=== PATIENT | female | born 1995 | race Hispanic/Latino ===

== ENCOUNTER 2017-07-08 20:43 | Emergency (ER) | payer SELFPAY ==
[2017-07-08 21:01] VITALS: BP 122/81
--- NOTE | 2017-07-08 22:42 | Emergency Department Report ---
ED Head Injury/Laceration HPI - HPI Occurred When: Today Mechanism: Direct Blow Location: Facial (left periorbit cut and bruises and), Frontal Pain: Moderate (6/10) Tetanus Status: Not up to Date Symptoms: Loss of Consciousness: No, Nausea: No, Blurred Vision: No, Unusual Behavior: No, Headache: Yes, Swelling: Yes, Bruising: Yes, Break in Skin: Yes, Bleeding: Yes Other History: Patient reported that she was at the playground today and misjudged speed and hit head on pipe which is metal. She says she has a cut over left eye with swelling. Denies any loss in vision or pain in her eye. Denies any nausea or vomiting. Denies any loss of consciousness. Denies any neck or back pain. She is complaining of pain localized to left facial area around her eye and also headache. Pain is 6 out of 10 and achy. Worse with touch period. No medication taken prior to coming to the hospital. Tetanus vaccine is not up-to-date. She denied any alcohol or drug involvement. ED General PMH - Past Medical History General Medical History: no medical history Surgical History: no surgical history LMP (females 10-50): last week (07/01/2017) - Family History Significant Family History: no pertinent family hx - Social History Smoking Status: Former Smoker Alcohol Use: none Drug Use: N ED Review of Systems ROS: Stated complaint: LACERATION L EYE Other details as noted in HPI Comment: All other systems reviewed and negative Constitutional: no symptoms reported Eyes: other (left eye swelling and). denies: eye pain, eye discharge, vision change ENT: denies: ear pain, throat pain, dental pain, hearing loss, epistaxis, congestion Respiratory: no symptoms reported Cardiovascular: denies: chest pain, palpitations, dyspnea on exertion, orthopnea , edema, syncope, paroxysmal nocturnal dyspnea Gastrointestinal: denies: abdominal pain, nausea, vomiting, diarrhea, constipation Genitourinary: denies: dysuria Musculoskeletal: arthralgia (left facial area). denies: back pain, joint swelling, myalgia Skin: other (swelling around left eye, bruising and laceration) Neurological: headache. denies: weakness, numbness, paresthesias, confusion, abnormal gait, vertigo Head Inj w/lac Physical Exam - Exam General: Vital signs noted. No distress. Alert and acting appropriately. This is a 22-year-old female well-nourished well-developed in no acute distress. Vital Signs 07/08/17 07/08/17 20:54 21:25 Temperature 98.7 F 98.7 F Pulse Rate 84 84 Respiratory 14 14 Rate Blood Pressure 122/81 122/81 O2 Sat by Pulse 99 99 Oximetry Adult Head Front + Back: 1 - 0.5 cm superficial laceration to left periorbital area. Bleeding noted. Tender to palpate with contusion around periorbital area 2 - Left periorbital contusion and bruising, swelling. Tender to palpate Head: Yes PERRL (sclera and conjunctiva within normal limits. No nystagmus), Yes Hematoma/Ecchymosis (left periorbital with tenderness to palpate), No Hemotympanum, No Epistaxis, No Stepoff/Deformity, No Abrasion (laceration to left periorbital area), No Foreign Body (visual acuity 20/40 left eye, 20/15 right eye. Patient does not wear glasses. Funduscopic exam is normal) Wound Length (cm): 0 (0.5 cm linear) Laceration Location: Facial (periorbital) Chest, Abd, & Ext: Yes Clear Lung Sounds (CTAB), Yes Regular Heart Rhythm (S1S2) , No Neck Pain, No Chest Injury/Pain, No Heart Murmur, No Abdominal Tenderness ( NTTP in all quadrants), No Back Tenderness (no vertebral or paraspinal tendernes ), No Extremity Injury (no CCE. +2 pulses) Neuroligical (Head Inj W/O Lac: Yes Normal Speech, Yes Normal Gait (positive Romberg and positive pronator drift), No Lethargy, No Disorientation (alert and oriented 3. GCS of 15 and speech is clear and fluid. No facial droop ), No Focal Weakness - Laceration /Wound Repair Left Face Wound Location: face (left periorbital) Wound Length (cm): 0 Wound's Depth, Shape: superficial (here 0.5 cm), linear Wound Explored: no foreign body removed Irrigated w/ Saline (ccs): 400 Betadine Prep?: Yes Anesthesia: 0.5% Sensorcaine (Marcaine) Volume Anesthetic (ccs): 2 Wound Debrided: moderate Wound Repaired With: sutures Suture Size/Type: 4:0 (Ethilon) Number of Sutures: 6 Layer Closure?: No Sterile Dressing Applied?: Yes (tolerated procedure well) ED Disposition Clinical Impression: Laceration of face Qualifiers: Encounter type: initial encounter Qualified Code(s): S01.81XA - Laceration without foreign body of other part of head, initial encounter Contusion of periorbital region, left Qualifiers: Encounter type: initial encounter Qualified Code(s): S05.12XA - Contusion of eyeball and orbital tissues, left eye, initial encounter Headache Qualifiers: Headache type: post-traumatic Headache chronicity pattern: acute headache Intractability: not intractable Qualified Code(s): G44.319 - Acute post- traumatic headache, not intractable Head injury, closed, without LOC Qualifiers: Encounter type: initial encounter Qualified Code(s): S09.90XA - Unspecified injury of head, initial encounter Disposition: DC- TO HOME OR SELFCARE Is pt being admited?: No Does the pt Need Aspirin: No Condition: Stable Instructions: Suture Care (ED), Laceration (ED), Black Eye (ED), Minor Head Injury (ED), Acute Headache (ED), Contusion in Adults (ED) Additional Instructions: Please follow discharge instructions on closed head injury. You need to follow- up with primary care 24 hours after head injury for follow-up neurological exam. He can return to the emergency room or go to urgent care if he do not have a primary care physician. If he did not have a primary care physician ,you can also follow-up at [facility] Take antibiotic as prescribed Take Tylenol for pain Please return to emergency room or urgent care in 5 days to have sutures removed. Keep Affected area to face clean and dry. It is possibileyou may have a scar and you can follow-up with plastic facial. Refer to discharge and shortened paperwork for details If you develop, increased sleepiness, dizziness, nausea vomiting, visual difficulties, increase in headache or any change in her mental status to include speech please return to the emergency room MASTER Prescriptions: Acetaminophen [Tylenol] 500 mg PO Q6HR PRN #16 tablet PRN Reason: pain Cephalexin [Keflex] 500 mg PO Q8HR 7 Days #21 cap Referrals: KYE ABDI MD [Primary Care Provider] - 07/10/17 [facility] [Outside] - 07/10/17 return to, emergency room [Other] - 07/10/17 (For 24 hour neurological checks status post closed head injury if he cannot get in with primary care or urgent care.) Forms: Accompanied Note, Work/School Release Form(ED) - General Chief Complaint: Laceration/Recheck/Suture Stated Complaint: LACERATION L EYE Time Seen by Provider: 07/08/17 22:31 - History of Present Illness Allergies/Adverse Reactions: Allergies No Known Allergies Allergy (Unverified 07/08/17 22:43) Home Medications: Ambulatory Orders Acetaminophen [Tylenol] 500 mg PO Q6HR PRN #16 tablet 07/09/17 Cephalexin [Keflex] 500 mg PO Q8HR 7 Days #21 cap 07/09/17 ED Medical Decision Making - Radiology Data Radiology results: report reviewed CT scan of the head without contrast shows no acute intracranial abnormality CT scan of the facial bones without contrast shows no acute fracture but soft tissue swelling left periorbital - Medical Decision Making ED course: Pt here after injury and sustain laceration to left facial area. She ran into a metal pole. Neurological exam is normal except she has positive Romberg and positive pronator drift. Patient has no tenderness to palpate in neck. Tenderness to palpate facial bone left proximal. CT scan of the brain without contrast showed no acute intracranial processes. CT scan of facial bones show no fracture or dislocation patient with soft tissue swelling in the left periorbital area. Physical findings for laceration left periorbit, bruising periorbital area on the left. Laceration repaired and patient tolerated procedure well. Please refer to procedure section for detail and laceration. Patient with closed head injury and was educated that she has to follow up 24 hours after incident for repeat neurological checks. I discussed all her radiology report with her and family members and she voiced understanding. Patient was given Boostrix 0.5 mL to update tetanus, clindamycin 600 mg by mouth in the emergency room prophylaxis, Tylenol manage and 975 mg for headache. Patient had voiced relief of pain up and reevaluation. Patient discharged home with her family member to return to emergency room or urgent care to have sutures removed in 5 days. I also discussed signs of infection. I encouraged her to read discharge instruction on closed head injury and if she developed any symptoms to return to the emergency room MASTER. Patient discharged home with her family and voices understanding to discharge instruction and treatment plan and need to follow- up. She was discharged home on Tylenol plain and Keflex. ED Course Vital Signs 07/08/17 07/08/17 20:54 21:25 Temperature 98.7 F 98.7 F Pulse Rate 84 84 Respiratory 14 14 Rate Blood Pressure 122/81 122/81 O2 Sat by Pulse 99 99 Oximetry - Reevaluation(s) Reevaluation #1: 07/08/17 23:10 Patient received Tylenol 975 mg for headache, clindamycin 600 mg by mouth, Boostrix 0.[address] scan. Reevaluation #2: 07/09/17 00:45 CT scan of the facial bones reveal left periorbital swelling without any fracture. Ct scan of the head revealed no acute abnormalities.
[2017-07-08] MEDS ORDERED: NACL 0.9% IR ONE (22:45)
[2017-07-08] MEDS ORDERED: MARCAINE 0.5% INFILTRATI ONE (22:45)
[2017-07-08] MEDS ORDERED: CLEOCIN PO ONE (22:45)
[2017-07-08] MEDS ORDERED: BOOSTRIX IM ONE (22:45)
[2017-07-08] MEDS ORDERED: TYLENOL PO ONE (22:47)
[2017-07-08] MEDS ORDERED: PEPCID PO ONE (23:30)
[2017-07-08] MEDS ORDERED: PEPCID ONE (23:32)
[2017-07-09 00:05] LABS: HCG Qualitative,Urine Negative (Negative)
--- NOTE | 2017-07-09 00:35 | Cat Scan Report ---
FINAL REPORT PROCEDURE: CT HEAD/BRAIN WO CON TECHNIQUE: Computerized tomography of the head was performed without contrast material. HISTORY: head injury with headache COMPARISON: No prior studies are available for comparison. FINDINGS: Skull and scalp: Normal. Paranasal sinuses: Normal. Ventricles and subarachnoid spaces: Normal. Cerebrum: No evidence of hemorrhage, acute infarction or mass . Cerebellum and brainstem: No evidence of hemorrhage, acute infarction or mass. Vasculature: Normal. Comments: None. IMPRESSION: Normal Examination
--- NOTE | 2017-07-09 00:43 | Cat Scan Report ---
FINAL REPORT PROCEDURE: CT FACIAL BONES WO CON TECHNIQUE: Computerized tomography of the facial bones and soft tissues with axial and coronal sections performed from the cranial aspect of the frontal sinuses to the caudal portion of the mandible without contrast material. HISTORY: head injury with left periorbit bruising /Lac COMPARISON: No prior studies are available for comparison. FINDINGS: Bones: No significant abnormality. Paranasal sinuses: Clear. Soft tissues: There is soft tissue swelling over the left orbit. The optic globes, optic nerves and extraocular muscles have a normal appearance.. Other: None. IMPRESSION: No acute fracture of facial bones. There is soft tissue swelling over the left orbital region.
== END 2017-07-09 02:40 | disposition home or self-care (01) ==
LOC: ED 20:43
DX: S01.112A Laceration without foreign body of left eyelid and periocular area, initial encounter (principal); Z87.891 Personal history of nicotine dependence; W22.8XXA Striking against or struck by other objects, initial encounter; Y93.89 Activity, other specified; Y92.89 Other specified places as the place of occurrence of the external cause; Y99.8 Other external cause status
CPT/HCPCS: 70450; 70486; 81025; 90471; 90715; 99284